=== PATIENT | female | born 1975 | race Caucasian/White ===

== ENCOUNTER → 2017-07-25 | Outpatient (CLI) | payer OTHER ==
[~2017-07-25] MED LIST: ATIVAN0.5 MG PO; ATORVASTATIN CA40 MG PO; CALCITRIOL0.25 MCG PO; CLARITIN,ALAVAR10 MG PO; COZAAR100 MG; CYMBALTA20 MG PO; DIALYVITE TABL1 EACH PO; DILAUDID2 MG PO; EPLERENONE50 MG PO; ERGOCALCIF50000 UNIT PO; FERROUS SULFAT324 M1 PO; FISH OIL 1,0001 EA10 PO; HYDROCHLOROTH12.5 M3 PO; KEFLEX500 MG PO; KLONOPIN0.5 M1 PO; LYRICA50 MG PO; METOPROLOL TAR100 MG PO; METOPROLOL TART25 MG PO; NABI650T PO; NOLVADEX20 MG PO; PROBIOTIC1 EAC1 PO; RENVELA800 MG PO; RIFAMPIN300 MG PO; TAMOXIFEN CITRA20 MG PO; XARELTO15 MG PO; ZETIA10 MG PO; ZOLOFT50 MG PO
[2017-07-25 10:02] LABS: TYPE OF FLUID PLEURAL
[2017-07-25 10:38] LABS: BODY FLUID PROTEIN 3.6 G/DL; BODY FLUID RBC'S < 1000 /MM^3 (0-100); BODY FLUID WBC'S 455 /MM^3 (0-500)
[2017-07-25 10:41] LABS: BODY FLUID EOSINOPHILS 21 % (0-25); MONO RAW COUNT 30; MONONUCLEAR WBC'S 30 %; POLY RAW COUNT 49; POLYNUCLEAR WBC'S 49 % (0-25)
== END | disposition home or self-care (01) ==
LOC: EDSTATUS 09:00 → RAD 09:00
PROVIDERS: Internal Medicine
PROC: 0W9B3ZZ Drainage of Left Pleural Cavity, Percutaneous Approach (ICD-10-PCS; principal; 2017-07-25)
DX: C50.919 Malignant neoplasm of unspecified site of unspecified female breast (principal); J90 Pleural effusion, not elsewhere classified
CPT/HCPCS: 76942; 82945; 84157; 87070; 87205; 88108; 88305; 89051

== ENCOUNTER 2017-09-22 23:26 | Inpatient (IN) | payer OTHER ==
[~2017-09-22] VITALS: Ht 167.6 cm; Wt 78.5 kg
[~2017-09-22 23:26] MED LIST changes: +LYRICA75 MG PO; +METOPROLOL SUCC25 MG PO
[2017-09-23 10:34] LABS: BASOPHIL COUNT 0.1 K/uL (0-0.1); EOSINOPHIL (%) 1.5 % (0-5); EOSINOPHIL COUNT 0.2 K/uL (0-0.3); HEMATOCRIT 28.4 % (36.0-46.0); IMMATURE GRANULOCYTE (%) 0.6 % (0.0-0.7); IMMATURE GRANULOCYTE COUNT 0.1 K/uL; INSTRUMENT ABS NEUTROPHIL CT 9.5 K/uL; LYMPHOCYTE COUNT 0.9 K/uL (1.0-2.8); MCHC 34.5 G/DL (30.0-36.0); MCV 104.4 FL (83-99); MEAN PLAT.VOLUME 11.3 uM^3 (9.5-12.4); MONOCYTE (%) 6.5 % (3-12); MONOCYTE COUNT 0.7 K/uL (0-0.8); NEUTROPHIL (%) 82.7 % (45-76); NEUTROPHIL COUNT 9.5 K/uL (1.8-6.4); PLATELET COUNT 227 K/uL (156-360); RBC DIS.WIDTH-CV 13.6 % (11.8-14.6); RBC DIS.WIDTH-SD 52.6 % (39-53); RED BLOOD COUNT 2.72 M/uL (3.80-5.20); WHITE BLOOD COUNT 11.5 K/uL (4.1-10.2)
[2017-09-23 10:39] LABS: PROTHROMBIN TIME 11.8 SEC (10.2-12.9)
[2017-09-23 10:42] LABS: PTT 28.6 SEC (25-37)
[2017-09-23 10:54] LABS: ANION GAP 13 MEQ/L (2-14); CHLORIDE 96 MEQ/L (99-109); POTASSIUM 4.1 MEQ/L (3.7-5.4); SAMPLE HEMOLYSIS CHECK 0; SAMPLE ICTERIC CHECK 0; SAMPLE LIPEMIA CHECK 0; SODIUM 137 MEQ/L (136-147); TOTAL BILIRUBIN 0.5 MG/DL (0.0-1.0)
[2017-09-23 11:00] LABS: ALKALINE PHOSPHATASE 104 IU/L (3-129); GFR ESTIMATE (CALCULATED) 6 mL/min/; GLUCOSE 90 mg/dL (70-99); UREA NITROGEN (BUN) 46 mg/dL (9-23)
[2017-09-23 17:08] VITALS: BP 115/70
[2017-09-23 19:54] VITALS: BP 119/71
[2017-09-23 23:48] VITALS: BP 126/76
[2017-09-24 03:50] VITALS: BP 112/58
[2017-09-24 07:18] LABS: HEMATOCRIT 25.8 % (36.0-46.0); MCH 37.6 PG (29.0-34.0); MCHC 34.5 G/DL (30.0-36.0); MEAN PLAT.VOLUME 11.4 uM^3 (9.5-12.4); PLATELET COUNT 177 K/uL (156-360); RBC DIS.WIDTH-CV 14.4 % (11.8-14.6); RBC DIS.WIDTH-SD 57.3 % (39-53); RED BLOOD COUNT 2.37 M/uL (3.80-5.20)
[2017-09-24 07:25] LABS: MCV 108.9 FL (83-99)
[2017-09-24 07:47] LABS: ANION GAP 14 MEQ/L (2-14); CHLORIDE 98 MEQ/L (99-109); GLUCOSE 97 mg/dL (70-99); POTASSIUM 4.9 MEQ/L (3.7-5.4); SAMPLE HEMOLYSIS CHECK 0; SAMPLE ICTERIC CHECK 0; SAMPLE LIPEMIA CHECK 0; SODIUM 133 MEQ/L (136-147); UREA NITROGEN (BUN) 58 mg/dL (9-23)
[2017-09-24 07:48] LABS: GFR ESTIMATE (CALCULATED) 5 mL/min/
[2017-09-24 08:39] VITALS: BP 124/77
[2017-09-24 12:30] VITALS: BP 134/72
[2017-09-24 18:06] VITALS: BP 139/67
[2017-09-24 19:34] VITALS: BP 131/71
[2017-09-24 23:33] VITALS: BP 143/74
[2017-09-25] VITALS (7 sets, daily range): BP systolic 112–145; BP diastolic 55–99
[2017-09-25 07:20] LABS: EOSINOPHIL (%) 0 % (0-5); HEMATOCRIT 24.5 % (36.0-46.0); IMMATURE GRANULOCYTE COUNT 0.2 K/uL; LYMPHOCYTE COUNT 0.3 K/uL (1.0-2.8); MCH 36.5 PG (29.0-34.0); MCHC 34.3 G/DL (30.0-36.0); MCV 106.5 FL (83-99); MEAN PLAT.VOLUME 12.2 uM^3 (9.5-12.4); MONOCYTE (%) 4.3 % (3-12); MONOCYTE COUNT 0.9 K/uL (0-0.8); NEUTROPHIL (%) 93.4 % (45-76); PLATELET COUNT 158 K/uL (156-360); RBC DIS.WIDTH-CV 14.5 % (11.8-14.6); RBC DIS.WIDTH-SD 56.9 % (39-53); WHITE BLOOD COUNT 21.5 K/uL (4.1-10.2)
[2017-09-25 07:36] LABS: ANION GAP 13 MEQ/L (2-14); CHLORIDE 95 MEQ/L (99-109); GFR ESTIMATE (CALCULATED) 7 mL/min/; GLUCOSE 111 mg/dL (70-99); POTASSIUM 4.7 MEQ/L (3.7-5.4); SAMPLE HEMOLYSIS CHECK 0; SAMPLE ICTERIC CHECK 0; SAMPLE LIPEMIA CHECK 0; SODIUM 134 MEQ/L (136-147); UREA NITROGEN (BUN) 43 mg/dL (9-23)
[2017-09-25 11:30] LABS: HBSG INDEX 0.21
[2017-09-25 11:31] LABS: AHBS INDEX 4.39; HEPATITIS B SURFACE ANTIBODY Nonreactive; HPCA INDEX 0.18
[2017-09-25 11:33] LABS: ANTI-HEPATITIS B CORE (TOTAL) Nonreactive; HBCT INDEX 0.04
[2017-09-26 04:01] VITALS: BP 108/62
[2017-09-26 08:03] VITALS: BP 110/62
[2017-09-26 08:45] LABS: HEMATOCRIT 22.2 % (36.0-46.0); MCHC 34.2 G/DL (30.0-36.0); MCV 105.2 FL (83-99); PLATELET COUNT 142 K/uL (156-360); RBC DIS.WIDTH-CV 13.9 % (11.8-14.6); RBC DIS.WIDTH-SD 53.5 % (39-53); RED BLOOD COUNT 2.11 M/uL (3.80-5.20); WHITE BLOOD COUNT 15.4 K/uL (4.1-10.2)
[2017-09-26 09:05] LABS: ANION GAP 14 MEQ/L (2-14); CHLORIDE 90 MEQ/L (99-109); GFR ESTIMATE (CALCULATED) 6 mL/min/; GLUCOSE 130 mg/dL (70-99); POTASSIUM 4.8 MEQ/L (3.7-5.4); SAMPLE HEMOLYSIS CHECK 0; SAMPLE ICTERIC CHECK 0; SAMPLE LIPEMIA CHECK 0
[2017-09-26 09:07] LABS: SODIUM 126 MEQ/L (136-147); UREA NITROGEN (BUN) 67 mg/dL (9-23)
[2017-09-26 16:22] VITALS: BP 118/72
[2017-09-26 19:47] VITALS: BP 144/93
[2017-09-26 23:12] VITALS: BP 120/76
[2017-09-27 06:13] VITALS: BP 118/73
[2017-09-27 09:58] VITALS: BP 135/92
[2017-09-27 11:28] VITALS: BP 132/85
[2017-09-27 11:57] LABS: ANION GAP 11 MEQ/L (2-14); CHLORIDE 94 MEQ/L (99-109); GLUCOSE 109 mg/dL (70-99); SAMPLE HEMOLYSIS CHECK 0; SAMPLE ICTERIC CHECK 0; SAMPLE LIPEMIA CHECK 0; UREA NITROGEN (BUN) 45 mg/dL (9-23)
[2017-09-27 12:00] LABS: GFR ESTIMATE (CALCULATED) 8 mL/min/; SODIUM 133 MEQ/L (136-147)
[2017-09-27] MEDS ORDERED: HYDROCODON-ACE1 EAC7 PO (14:41)
[2017-09-27] MEDS ORDERED: DOCUSATE SODIU100 MG PO (14:41)
[2017-10-18] MEDS ORDERED: BUMEX0.5 MG PO (14:18)
== END 2017-09-27 17:17 | disposition home or self-care (01) | DRG 163 ==
LOC: ENRESERV 23:26 → CANRESERV 23:26 → ENRESERV 09-23 04:44 → 3EAST 09-23 09:41 → 2SOUTH 09-23 09:41 → ENRESERV 09-23 14:14 → CANRESERV 09-23 14:14 → ENRESERV 09-23 15:32 → 3EAST 09-23 16:52
PROVIDERS: Internal Medicine Nephrology; Physical Medicine & Rehabilitation; Thoracic Surgery (Cardiothoracic Vascular Surgery)
DX: J90 Pleural effusion, not elsewhere classified (principal); N18.6 End stage renal disease; I12.0 Hypertensive chronic kidney disease with stage 5 chronic kidney disease or end stage renal disease; D63.1 Anemia in chronic kidney disease; Z87.891 Personal history of nicotine dependence; Z99.2 Dependence on renal dialysis; Z90.12 Acquired absence of left breast and nipple; J20.9 Acute bronchitis, unspecified; J84.10 Pulmonary fibrosis, unspecified; Z92.3 Personal history of irradiation; I47.2 Ventricular tachycardia; I31.3 Pericardial effusion (noninflammatory); C50.919 Malignant neoplasm of unspecified site of unspecified female breast; Y84.2 Radiological procedure and radiotherapy as the cause of abnormal reaction of the patient, or of later complication, without mention of misadventure at the time of the procedure; I08.1 Rheumatic disorders of both mitral and tricuspid valves
CPT/HCPCS: 71010; 71020; 80048; 80053; 80069; 85025; 85027; 85610; 85730; 86704; 86706; 86803; 86850; 86900; 86901; 86920; 87340; 88305; 88342 TC; 94640; 94640 76; 94667; 94668; 94799; 99202; J0131; J0690; J0696; J0881; J1100; J1170; J1644; J2250; J2405; J2710; J3010; J7050; J7120; J7512; Q0175

== ENCOUNTER → 2018-01-09 | Outpatient (CLI) | payer OTHER ==
[~2018-01-09] MED LIST changes: +BUMEX0.5 MG PO; +DOCUSATE SODIU100 MG PO; +HYDROCODON-ACE1 EAC7 PO
== END | disposition home or self-care (01) ==
LOC: RAD 13:15
PROC: 0WJG3ZZ Inspection of Peritoneal Cavity, Percutaneous Approach (ICD-10-PCS; principal; 2018-01-09)
DX: R18.8 Other ascites (principal); C50.919 Malignant neoplasm of unspecified site of unspecified female breast; Z53.09 Procedure and treatment not carried out because of other contraindication
CPT/HCPCS: 76705

== ENCOUNTER 2018-07-18 10:25 | Day surgery (SDC) | payer OTHER ==
[~2018-07-18] VITALS: Ht 167.6 cm; Wt 73.9 kg
[~2018-07-18 10:25] MED LIST changes: +APRESOLINE10 MG PO; -BUMEX0.5 MG PO; +BUMEX1 MG PO; -METOPROLOL SUCC25 MG PO; +TOPROL XL50 MG PO
[2018-07-18 11:28] VITALS: BP 143/84
[2018-07-18 12:27] LABS: CHLORIDE 96 MEQ/L (99-109); GFR ESTIMATE (CALCULATED) 7 mL/min/; GLUCOSE 99 mg/dL (70-99); POTASSIUM 4.7 MEQ/L (3.7-5.4); SODIUM 134 MEQ/L (136-147); UREA NITROGEN (BUN) 54 mg/dL (9-23)
== END 2018-07-18 12:15 | disposition home or self-care (01) ==
LOC: SDC 10:25
PROVIDERS: Student in an Organized Health Care Education/Training Program
PROC: 0HJPXZZ Inspection of Skin, External Approach (ICD-10-PCS; principal; 2018-07-18)
DX: Z45.2 Encounter for adjustment and management of vascular access device (principal); Z53.8 Procedure and treatment not carried out for other reasons
CPT/HCPCS: 80048; 93005